=== PATIENT | female | born 1985 | race Two or more races ===

== ENCOUNTER 2017-08-24 11:39 | Outpatient (CLI) | payer OTHER | END 2017-08-24 11:52 | disposition home or self-care (01) | LOC: SONOGRAMA 11:39 | DX: N84.0 Polyp of corpus uteri (principal) ==

== ENCOUNTER 2017-11-27 08:45 | Day surgery (SDC) | payer OTHER ==
[~2017-11-27 08:45] MED LIST: ADVAIR 100-501 EACH IH; ALLEGRA; NEPHRONEX-SL T1 EACH PO; PROVENTIL HFA6.7 GM
[2017-11-27] MEDS ORDERED: NAPROXEN SODIU550 M1 PO (12:56)
== END 2017-11-27 17:15 | disposition home or self-care (01) ==
LOC: CIR.AMB 08:45
DX: N84.0 Polyp of corpus uteri (principal)